=== PATIENT | female | born 1995 | race African-American/Black ===

== ENCOUNTER 2021-03-01 03:17 | Emergency (ER) | payer SELFPAY ==
[~2021-03-01] VITALS: Ht 162.6 cm; Wt 89.8 kg
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
[2021-03-01] MEDS ORDERED: IBUPROFEN 400 MG TABLET PO ONE (03:30)
--- NOTE | 2021-03-01 03:38 | NUR ---
PT PROVIDED WITH WARM BLANKETS.
--- NOTE | 2021-03-01 03:41 | NUR ---
xray at bedside
[2021-03-01] MEDS ORDERED: IBUPROFEN 400 MG TABLET ONE (03:42)
--- NOTE | 2021-03-01 04:00 | NUR ---
[facility] OFFICERS AT BEDSIDE TALKING TO PT.
--- NOTE | 2021-03-01 05:00 | NUR ---
[facility] AFFILATED PHLEB AT [facility]
--- NOTE | 2021-03-01 06:00 | NUR ---
Patient discharged to home in stable condition. Written and verbal after care instructions given. Patient verbalizes understanding of instruction. Pt ambulatory with a steady gait
[2021-03-01 06:04] VITALS: BP 114/85
== END 2021-03-01 06:00 | disposition home or self-care (01) ==
LOC: ER 03:20
DX: S83.8X1A Sprain of other specified parts of right knee, initial encounter (principal); S50.12XA Contusion of left forearm, initial encounter; F10.129 Alcohol abuse with intoxication, unspecified; V49.49XA Driver injured in collision with other motor vehicles in traffic accident, initial encounter; Y93.89 Activity, other specified; Y92.413 State road as the place of occurrence of the external cause; Y99.8 Other external cause status; Y90.9 Presence of alcohol in blood, level not specified
CPT/HCPCS: 73060-TC; 73090-TC; 73564-TC